=== PATIENT | male | born 1990 | race African-American/Black ===

== ENCOUNTER 2018-09-04 12:04 | Inpatient (IN) | payer OTHER ==
[2018-09-04] MEDS ORDERED: ZOLPIDEM 5 MG TAB PO (13:30)
[2018-09-04] MEDS ORDERED: PENDING SANTYL ORDER FOR WOUND CARE XX (13:30)
[2018-09-04] MEDS ORDERED: NACL 0.9% 3 ML SYG IV (13:30)
[2018-09-04] MEDS ORDERED: MAGNESIUM HYDROXIDE 30ML CUP PO (13:30)
[2018-09-04] MEDS ORDERED: ACETAMINOPHEN 325 MG TAB PO (13:30)
[2018-09-04] MEDS ORDERED: DOCUSATE SODIUM 100 MG CAP PO (13:30)
[2018-09-04] MEDS ORDERED: ONDANSETRON 4 MG INJ IV (13:30)
[2018-09-04] MEDS ORDERED: GLUCAGON 1 MG INJ IM (14:00)
[2018-09-04] MEDS ORDERED: GLUCOSE GEL 15 GRAM TUBE BUCCAL (14:00)
[2018-09-04] MEDS ORDERED: GLUCOSE GEL 15 GRAM TUBE PO ×2 (14:00)
[2018-09-04] MEDS ORDERED: DEXTROSE 50% 50 ML SYRINGE IV ×2 (14:00)
[2018-09-04] MEDS: SOD CHLORIDE 0.9% 1,000 ML IV ×2 (14:56→23:14)
[2018-09-04] MEDS: morphine 2 MG INJ IV ×2 (15:01→21:12)
[2018-09-04] MEDS: INSULIN ASPART [NOVOLOG] 3 ML PEN SC ×3 (15:24→21:10)
[2018-09-04] MEDS: INSULIN GLARGINE [LANTus] (100 UNITS/ML) SYG SC ×2 (15:26→21:11)
[2018-09-04] MEDS: CREON (24K-76K-120K) 1 CAP PO (17:44)
[2018-09-04] MEDS ORDERED: INSULIN ASPART [NOVOLOG] 3 ML PEN SC (17:55)
[2018-09-04] MEDS: HYDROCODONE/APAP (5/325) TAB PO (18:50)
[2018-09-05] MEDS: SOD CHLORIDE 0.9% 1,000 ML IV (01:14)
[2018-09-05] MEDS: morphine 2 MG INJ IV ×3 (01:27→15:41)
[2018-09-05] MEDS: ACCU-CHEK XX (02:00)
[2018-09-05 05:12] LABS: HAAIG REFLEX REFLEX FILED
[2018-09-05 05:16] LABS: ADD MAN DIFF? NO
[2018-09-05 05:25] LABS: WHITE BLOOD COUNT 5.4 10^3/ul (4.8-10.8)
[2018-09-05 05:25] LABS: BASOPHIL # 0.1 10^3/ul (0.0-0.1); BASOPHILS % 0.9 % (0.0-2.0); EOSINOPHILS # 0.2 10^3/ul (0.0-0.5); EOSINOPHILS % 3.3 % (0.0-7.0); HEMATOCRIT 32.1 % (42.0-52.0); HEMOGLOBIN 10.7 g/dl (14.0-18.0); LYMPHOCYTES # 2.1 10^3/ul (0.8-2.9); LYMPHOCYTES % 39.4 % (15.0-51.0); MEAN CORPUSCULAR HEMOGLOBIN 30.9 pg (29.0-33.0); MEAN CORPUSCULAR HGB CONC 33.3 g/dl (32.0-37.0); MEAN CORPUSCULAR VOLUME 92.8 fl (82.0-101.0); MEAN PLATELET VOLUME 9.9 fl (7.4-10.4); MONOCYTE # 0.3 10^3/ul (0.3-0.9); MONOCYTES % 5.2 % (0.0-11.0); NEUTROPHIL # 2.8 10^3/ul (1.6-7.5); PLATELET COUNT 208 10^3/UL (140-415); RED BLOOD COUNT 3.46 10^6/ul (4.70-6.10); RED CELL DISTRIBUTION WIDTH 13.2 % (11.5-14.5)
[2018-09-05 05:54] LABS: ALANINE AMINOTRANSFERASE 33 IU/L (13-69); ALBUMIN 2.3 g/dl (3.3-4.9); ALBUMIN/GLOBULIN RATIO 0.92; ALKALINE PHOSPHATASE 79 IU/L (42-121); ANION GAP 7 (5-13); ASPARTATE AMINO TRANSFERASE 28 IU/L (15-46); BLOOD UREA NITROGEN 15 mg/dl (7-20); CALCIUM 8.9 mg/dl (8.4-10.2); CARBON DIOXIDE 21 mmol/L (21-31); CHLORIDE 111 mmol/L (97-110); CHOL/HDL RATIO 1.6 RATIO; CHOLESTEROL 95 mg/dl (100-200); Estimated GFR > 60 mL/min (>60); GLUCOSE 112 mg/dl (70-220); HDL CHOLESTEROL 57 mg/dl (28-63); LDL CHOLESTEROL,CALCULATED 29 mg/dl; LIPASE 363 U/L (23-300); MAGNESIUM 1.6 mg/dl (1.7-2.5); POTASSIUM 3.7 mmol/L (3.5-5.1); SODIUM 139 mmol/L (135-144); TOTAL PROTEIN 4.8 g/dl (6.1-8.1); TRIGLYCERIDES 46 mg/dl (0-149)
[2018-09-05 06:19] LABS: HEPATITIS B SURFACE ANTIGEN NEGATIVE (NEGATIVE)
[2018-09-05 06:36] LABS: HEPATITIS B CORE ANTIBODY NEGATIVE (NEGATIVE); HEPATITIS C VIRAL ANTIBODY NEGATIVE (NEGATIVE); HIV 1&2 ANTIBODY NEGATIVE (NEGATIVE)
[2018-09-05] MEDS: INSULIN ASPART [NOVOLOG] 3 ML PEN SC ×4 (07:50→20:21)
[2018-09-05] MEDS: CREON (24K-76K-120K) 1 CAP PO ×3 (09:06→17:42)
[2018-09-05] MEDS: INSULIN GLARGINE [LANTus] (100 UNITS/ML) SYG SC (20:20)
[2018-09-05] MEDS: morphine LIQ (10 MG/5 ML) CUP PO (22:53)
[2018-09-06] MEDS: HYDROCODONE/APAP (5/325) TAB PO (01:51)
[2018-09-06] MEDS: ACCU-CHEK XX (02:00)
[2018-09-06] MEDS: morphine LIQ (10 MG/5 ML) CUP PO (06:34)
[2018-09-06] MEDS: INSULIN ASPART [NOVOLOG] 3 ML PEN SC ×2 (07:50→12:54)
[2018-09-06] MEDS: CREON (24K-76K-120K) 1 CAP PO ×2 (08:28→12:52)
[2018-09-06] MEDS ORDERED: INSULIN GLARGINE [LANTus] (100 UNITS/ML) SYG SC (21:00)
== END 2018-09-06 14:28 | disposition home or self-care (01) | DRG 439 ==
LOC: MS1 12:04
PROVIDERS: Internal Medicine
DX: K85.90 Acute pancreatitis without necrosis or infection, unspecified (principal); R64 Cachexia; E10.65 Type 1 diabetes mellitus with hyperglycemia; K52.9 Noninfective gastroenteritis and colitis, unspecified; E78.5 Hyperlipidemia, unspecified; F17.210 Nicotine dependence, cigarettes, uncomplicated; F12.10 Cannabis abuse, uncomplicated; Z68.22 Body mass index [BMI] 22.0-22.9, adult; Z91.14 Patient's other noncompliance with medication regimen; Z79.4 Long term (current) use of insulin
CPT/HCPCS: 76705; 80053; 80061; 82962; 83036; 83690; 83735; 84100; 85025; 86703; 86704; 86709; 86803; 87340